=== PATIENT | male | born 1970 | race Caucasian/White ===

== ENCOUNTER 2022-06-22 08:17 | Inpatient (IN) | payer OTHER ==
[~2022-06-22] VITALS: Ht 190.5 cm; Wt 136.1 kg
--- NOTE | 2022-06-22 08:26 | NUR ---
[id number] C/O ABDOMINAL PAIN [id number], +VOMITING/NAUSEA, +ILEOSTOMY HX OF CROHN'S DISEASE, TO ER BED 4, HOOKED TO MONITOR, CHANEGD TO HOSP GOWN, WARM BLANKET PROVIDED. AWAITING MD HARRIS
--- NOTE | 2022-06-22 08:29 | NUR ---
DR. ZALDIVAR AT BEDSIDE.
[2022-06-22] MEDS ORDERED: HYDROMORPHONE INJ 2 MG/ML DISP.SYRIN IV ONE ×2 (08:30→10:30)
[2022-06-22] MEDS ORDERED: IV NS 0.9% 1,000 ML BAG IV ONE ×2 (08:30→12:30)
[2022-06-22] MEDS ORDERED: ONDANSETRON HCL/PF 4 MG/2 ML VIAL IVP ONE (08:30)
[2022-06-22] MEDS ORDERED: HYDROMORPHONE 1 MG/1 ML DISP.SYRIN ONE ×2 (08:32→11:18)
[2022-06-22] MEDS ORDERED: ONDANSETRON HCL/PF 4 MG/2 ML VIAL ONE ×2 (08:32→13:56)
--- NOTE | 2022-06-22 08:43 | NUR ---
TAKEN TO CT VIA KAREN
[2022-06-22 08:47] LABS: BASOPHILS % (AUTO) 0.2 % (0.0-2.0); HEMATOCRIT 50 % (39-51); HEMOGLOBIN 16.1 g/dL (13.5-17.5); LYMPHOCYTES % (AUTO) 6.2 % (20.0-44.0); MEAN CORPUSCULAR HGB CONC 32 g/dl (31.0-36.0); MEAN CORPUSCULAR VOLUME 86 fL (80-96); MONOCYTES # (AUTO) 1.3 K/uL (0.1-1.30); MONOCYTES % (AUTO) 8.4 % (2.0-12.0); NEUTROPHILS # (AUTO) 13.3 K/uL (1.8-8.9); NEUTROPHILS % (AUTO) 85.2 % (43.0-81.0); PLATELET COUNT (AUTO) 442 K/uL (150-450); WHITE BLOOD COUNT (AUTO) 15.5 K/uL (4.3-11.0)
[2022-06-22 09:03] LABS: ALBUMIN 3.9 g/dL (3.4-5.0); BILIRUBIN,DIRECT 0.2 mg/dL (0.0-0.2); BILIRUBIN,TOTAL 1.6 mg/dL (0.2-1.0); CALCIUM, SERUM 10.5 mg/dL (8.5-10.1); POTASSIUM 4.2 mmol/L (3.5-5.1); TOTAL PROTEIN, SERUM 9.3 g/dL (6.4-8.2)
--- NOTE | 2022-06-22 09:31 | NUR ---
COVID SWAB COLLECTED AND SENT TO LAB
--- NOTE | 2022-06-22 09:58 | NUR ---
[facility] CALLED [facility] PAGED.
--- NOTE | 2022-06-22 10:05 | NUR ---
CALLED SURGERY DR. KONG SPEAKING WITH DR. ZALDIVAR
[2022-06-22] MEDS ORDERED: USTE90DI SQ (10:17)
[2022-06-22] MEDS ORDERED: IV NS 0.9% 1,000 ML IV SCH (10:30)
[2022-06-22] MEDS ORDERED: ACETAMINOPHEN 325 MG TABLET PO PRN (10:30)
--- NOTE | 2022-06-22 10:53 | NUR ---
LAB CALLED [facility] 5.6 DR. ZALDIVAR NOTIFIED.
[2022-06-22] MEDS ORDERED: CEFEPIME 2 GM in IV D5W 100 ML IV SCH (11:00)
[2022-06-22] MEDS ORDERED: CEFEPIME 1 GM in IV D5W 50 ML IV ONE (11:30)
[2022-06-22 11:39] LABS: BILIRUBIN,URINE SMALL (NEGATIVE); COLOR,URINE DARK YELLOW (YELLOW); LEUKOCYTE ESTERASE ,URINE NEGATIVE (NEGATIVE); NITRITE, URINE NEGATIVE (NEGATIVE); PROTEIN,URINE 30 mg/dl (NEGATIVE); UGLUCOSE NEGATIVE (NEGATIVE); UROBILINOGEN,URINE 0.2 EU/dL (0.2)
[2022-06-22 11:58] LABS: BACTERIA,URINE None seen /HPF (None Seen); RBC,URINE 0-2 /HPF (0-2); SQUAMOUS EPITHELIAL CELL,UR Few /HPF (None Seen); WBC,URINE 0-2 /HPF (0-3)
[2022-06-22] MEDS ORDERED: IV NS 0.9% 500 ML BAG IV ONE (12:30)
--- NOTE | 2022-06-22 12:40 | NUR ---
REQUESTED FOR [facility] BED. AWAITING RESPONSE.
[2022-06-22] MEDS: ONDANSETRON HCL/PF 4 MG/2 ML VIAL IVP PRN ×2 (13:59→21:16)
--- NOTE | 2022-06-22 15:37 | NUR ---
GOT BED 328-1
--- NOTE | 2022-06-22 15:47 | NUR ---
REPORT GIVEN TO LORE DOTY
--- NOTE | 2022-06-22 16:10 | NUR ---
TRANSFERRED TO BED 328 IN STABLE CONDITION
--- NOTE | 2022-06-22 16:20 | NUR ---
ADMISSION NOTE Received patient from ER via gurney. Patient is A/O x 4, able to make needs known. IV access on WHITNEY #18, intact and patent. NS started, infusing at 100 ml/hr. On room air, breathing evenly and unlabored. No SOB or s/s of distress noted. Patient oriented to room and how to use the call light. Skin assessment done, Ileostomy noted on RLQ of the abdomen. Photos taken of healed abdominal incision, skin tear on Right big to, and callus on right knee; placed in chart. VS taken as follows: BP 120/83, HR 80, RR 18, Temp 98, SPO2 97%. Patient complains of abdominal pain /10. Lungs are clear to auscultation. Generalized tenderness on abdomen noted. Safety precautions in place: bed in low, locked position siderails up x 2; call light within reach. Will continue to monitor.
[2022-06-22] MEDS: IV NS 0.9% 1,000 ML IV SCH (16:29)
--- NOTE | 2022-06-22 19:35 | NUR ---
MS RN OPENING NOTE RECEIVED PATIENT RESTING IN BED; AWAKE, ALERT AND ORIENTED X4. BREATHING EVEN AND NONLABORED. ON ROOM AIR; TOLERATING WELL. NO SOB NOTED. DENIES ANY PAIN OR DISCOMFORT OF THIS TIME. IV ACCESS ON RIGHT UPPER ARM G#18; PATENT AND INTACT INFUSING WITH NS REGULATED @ 100 ML/HR; FLUSHES WELL. ABLE TO MAKE NEEDS KNOWN. WITH RLQ ILEOSTOMY NOTED DRAINING WITH LIQUID STOOL. SAFETY PRECAUTIONS IMPLEMENTED: HEAD OF BED ELEVATED; CALL LIGHT AND TABLE WITHIN REACH, SIDE RAILS UP X2, BED IN LOWEST LOCKED POSITION. WILL CONTINUE TO MONITOR
--- NOTE | 2022-06-22 19:49 | NUR ---
MS RN CLOSING NOTE Patient in bed, awake. A/O x 4, able to make needs known. Stable on room air, breathing evenly and unlabored. No SOB or s/s of distress noted. IV access on WHITNEY #18 infusing Ns at 100 ml/hr. All needs attended to. RLQ ileostomy noted, drained 350 cc liquid stool. Safety precautions maintained: bed in low, locked position siderails up x 2; call light within reach. Will endorse to crossing watchman nurse for VIKTORIA.
[2022-06-22 20:00] VITALS: BP 135/78
[2022-06-22] MEDS: HEPARIN SODIUM, PORCINE 5000 UNITS/1 ML VIAL SQ SCH (21:00)
--- NOTE | 2022-06-22 21:00 | NUR ---
MS RN NOTE PATIENT REFUSED TO RECEIVE HEPARIN 5000 UNITS SQ.
[2022-06-22] MEDS: CEFEPIME 2 GM in IV D5W 100 ML IV SCH (23:19)
[2022-06-23] MEDS: MORPHINE SULFATE INJ 2 MG/ML DISP.SYRIN IV PRN ×3 (01:19→22:26)
--- NOTE | 2022-06-23 01:19 | NUR ---
MS RN NOTE PATIENT COMPLAINED OF ABDOMINAL PAIN 07/02; PRN MORPHINE 2MG GIVEN VIA IV ORDERED. WARM BLANKET PROVIDED PER PATIENT'S REQUEST. WILL CONTINUE TO MONITOR.
[2022-06-23] MEDS: IV NS 0.9% 1,000 ML IV SCH (01:20)
[2022-06-23 06:38] LABS: BASOPHILS % (AUTO) 0.1 % (0.0-2.0); EOSINOPHILS % (AUTO) 0.9 % (0.0-6.0); HEMATOCRIT 40 % (39-51); LYMPHOCYTES # (AUTO) 0.9 K/uL (0.8-4.8); LYMPHOCYTES % (AUTO) 14.1 % (20.0-44.0); MEAN CORPUSCULAR HGB CONC 32 g/dl (31.0-36.0); MEAN CORPUSCULAR VOLUME 86 fL (80-96); MONOCYTES # (AUTO) 0.8 K/uL (0.1-1.30); MONOCYTES % (AUTO) 12.6 % (2.0-12.0); NEUTROPHILS # (AUTO) 4.6 K/uL (1.8-8.9); NEUTROPHILS % (AUTO) 72.3 % (43.0-81.0); PLATELET COUNT (AUTO) 288 K/uL (150-450); RED BLOOD CELL COUNT(AUTO) 4.65 MIL/uL (4.5-6.0); WHITE BLOOD COUNT (AUTO) 6.3 K/uL (4.3-11.0)
--- NOTE | 2022-06-23 06:55 | NUR ---
MS RN CLOSING NOTE PATIENT IN BED; AWAKE, A/O X4. BREATHING EVENLY AND NONLABORED. STABLE ON ROOM AIR. NO SOB NOTED. IV ACCESS ON WHITNEY G#18; PATENT AND INTACT INFUSING WITH NS REGULATED @ 100 ML/HR; FLUSHES WELL. NO INFILTRATION NOTED. WITH RLQ ILEOSTOMY NOTED DRAINING WITH LIQUID STOOL. ALL NEEDS ATTENDED TO. SAFETY PRECAUTIONS IN PLACE: HOB ELEVATED, CALL LIGHT AND TABLE WITHIN EASY REACH, SIDE RAILS UP X2, BED IN LOWEST LOCKED POSITION. ENDORSED TO MORNING SHIFT FOR VIKTORIA.
--- NOTE | 2022-06-23 07:08 | NUR ---
MS RN OPENING NOTE RECEIVED PATIENT SLEEPING IN BED, ON ROOM AIR, NO S/S OF RESPIRATORY DISTRESS. A/O x4, NO S/S OR C/O OF CARDIAC DISTRESS. IV ACCESS WHITNEY #18G WITH NS RUNNING @100 ML/HR. PATIENT IS AMBULATORY AND CONTINENT, HAS BRP. SKIN ISSUES: R KNEE SCAB, R BIG TOE SKIN TEAR, RLQ OSTOMY PRESENT, BAG IN PLACE NO LEAK NOTED, DRAINING WELL. SAFETY MEASURES IN PLACE: BED LOCKED AND IN LOWEST POSITION, SIDE RAILS UP x2, HOB ELEVATED, AND CALL LIGHT WITHIN REACH.
[2022-06-23 07:26] LABS: BILIRUBIN,TOTAL 0.7 mg/dL (0.2-1.0); CALCIUM, SERUM 8.8 mg/dL (8.5-10.1); CREATININE 1.4 mg/dL (0.6-1.3); MAGNESIUM 2.3 mg/dL (1.8-2.4); PHOSPHORUS 3.1 mg/dL (2.5-4.9); POTASSIUM 4.2 mmol/L (3.5-5.1); TOTAL PROTEIN, SERUM 7.1 g/dL (6.4-8.2)
[2022-06-23] MEDS: HEPARIN SODIUM, PORCINE 5000 UNITS/1 ML VIAL SQ SCH ×2 (09:21→20:31)
[2022-06-23] MEDS: CEFEPIME 2 GM in IV D5W 100 ML IV SCH ×2 (10:40→22:11)
--- NOTE | 2022-06-23 11:13 | NUR ---
RN NOTES PATIENT LEFT UNIT FOR X-RAY OF SMALL BOWEL FOLLOW THROUGH. ACCOMPANIED BY 1 X-RAY TECH AND BROUGHT DOWN VIA WHEELCHAIR.
[2022-06-23] MEDS ORDERED: BARIUM SULFATE SUSP 450 ML BOTTLE PO ONE (11:20)
[2022-06-23] MEDS ORDERED: DIATR MEGLU/DIATRIZOATE SODIUM 120 ML BOTTLE (GASTROGRAPHIN) ONE (11:20)
[2022-06-23] MEDS ORDERED: BARIUM SULFATE 98% 135 ML SUSP.RECON PO ONE (11:22)
--- NOTE | 2022-06-23 12:52 | NUR ---
PATIENT RETURNED FROM RADIOLOGY, NO S/S OF DISTRESS, DISCOMFORT, OR PAIN. WILL CONTINUE TO MONITOR.
--- NOTE | 2022-06-23 15:10 | NUR ---
RN NOTES PATIENT COMPLAINED OF PAIN 07/02, PRN MORPHINE GIVEN @1507. WILL CONTINUE TO MONITOR.
[2022-06-23] MEDS: IV NS 0.9% 1,000 ML IV PRN (18:36)
--- NOTE | 2022-06-23 18:44 | NUR ---
MS RN CLOSING NOTE PATIENT RESTING IN BED ON PHONE, ON ROOM AIR, NO S/S OF RESPIRATORY DISTRESS. A/O x4, NO S/S OR C/O OF CARDIAC DISTRESS. IV ACCESS WHITNEY #18G WITH NS RUNNING @100 ML/HR. PATIENT IS AMBULATORY WITH ASSISTANCE AND CONTINENT, HAS BRP. SKIN ISSUES: R KNEE SCAB, R BIG TOE SKIN TEAR, RLQ OSTOMY PRESENT, BAG IN PLACE NO LEAK NOTED, DRAINING WELL. SAFETY MEASURES MAINTAINED: BED LOCKED AND IN LOWEST POSITION, SIDE RAILS UP x2, HOB ELEVATED, AND CALL LIGHT WITHIN REACH.
--- NOTE | 2022-06-23 20:20 | NUR ---
MS RN OPENING NOTE RECEIVED PATIENT IN BED AOX4 ON ROOM AIR STEVO WELL.NO SOB/DISTRESS NOTED. IV ACCESS WHITNEY #18G WITH NS RUNNING @100 ML/HR.PATENT AND INTACT. RLQ OSTOMY PRESENT, BAG IN PLACE NO LEAK NOTED, DRAINING WELL. SAFETY MEASURES IN PLACE: BED LOCKED AND IN LOWEST POSITION, SIDE RAILS UP x2, HOB ELEVATED, AND CALL LIGHT WITHIN REACH.WILL CONTINUE TO MONITOR.
[2022-06-24] MEDS: IV NS 0.9% 1,000 ML IV PRN (03:14)
[2022-06-24 04:40] VITALS: BP 110/77
--- NOTE | 2022-06-24 06:13 | NUR ---
MS RN CLOSING NOTE PATIENT IN BED SLEEPING,ON ROOM AIR, NO S/S OF RESPIRATORY DISTRESS. A/O x4, NO S/S OR C/O OF CARDIAC DISTRESS. IV ACCESS WHITNEY #18G WITH NS RUNNING @100 ML/HR. PATIENT IS AMBULATORY WITH ASSISTANCE AND CONTINENT,DUE MEDS GIVEN ORDER.ALL NEEDS ATTENDED.SAFETY MEASURES MAINTAINED: BED LOCKED AND IN LOWEST POSITION, SIDE RAILS UP x2, HOB ELEVATED, AND CALL LIGHT WITHIN REACH.WILL ENDORSED TO NEXT SHIFT.
[2022-06-24 06:32] LABS: BASOPHILS % (AUTO) 0.3 % (0.0-2.0); EOSINOPHILS % (AUTO) 3.2 % (0.0-6.0); HEMATOCRIT 37 % (39-51); HEMOGLOBIN 12.1 g/dL (13.5-17.5); LYMPHOCYTES % (AUTO) 27.7 % (20.0-44.0); MEAN CORPUSCULAR HGB CONC 33 g/dl (31.0-36.0); MEAN CORPUSCULAR VOLUME 86 fL (80-96); MONOCYTES # (AUTO) 0.6 K/uL (0.1-1.30); MONOCYTES % (AUTO) 17.3 % (2.0-12.0); NEUTROPHILS # (AUTO) 1.9 K/uL (1.8-8.9); NEUTROPHILS % (AUTO) 51.5 % (43.0-81.0); PLATELET COUNT (AUTO) 241 K/uL (150-450); RED BLOOD CELL COUNT(AUTO) 4.34 MIL/uL (4.5-6.0); WHITE BLOOD COUNT (AUTO) 3.7 K/uL (4.3-11.0)
[2022-06-24 07:01] LABS: CALCIUM, SERUM 8.9 mg/dL (8.5-10.1); CREATININE 1.4 mg/dL (0.6-1.3); MAGNESIUM 2.4 mg/dL (1.8-2.4); PHOSPHORUS 2.8 mg/dL (2.5-4.9); POTASSIUM 3.8 mmol/L (3.5-5.1)
[2022-06-24 08:00] VITALS: BP 110/62
[2022-06-24] MEDS: HEPARIN SODIUM, PORCINE 5000 UNITS/1 ML VIAL SQ SCH ×2 (08:27→21:49)
[2022-06-24] MEDS: METOCLOPRAMIDE HCL 10 MG/2 ML VIAL IV SCH ×3 (09:30→18:00)
[2022-06-24 09:50] LABS: BASOPHILS % (MANUAL) 0 % (0.0-2.0); EOSINOPHILS % (MANUAL) 5 % (0-4); LYMPHOCYTES % (MANUAL) 29 % (16-48); MONOCYTES % (MANUAL) 13 % (0-11.0); NEUTROPHILS % (MANUAL) 53 (42-76)
[2022-06-24] MEDS: CEFEPIME 2 GM in IV D5W 100 ML IV SCH ×2 (11:35→23:14)
--- NOTE | 2022-06-24 11:36 | NUR ---
RN NOTES PATIENT REFUSED REGLAN SAYING THAT HE DOES NOT FEEL NAUSEOUS AT THE MOMENT AND HAS NOT EATEN ANYTHING YET. WILL CONTINUE TO MONITOR.
--- NOTE | 2022-06-24 18:09 | NUR ---
RN NOTES ASKED PATIENT IF HE WANTED TO TAKE THE THIRD DOSE OF REGLAN BUT PATIENT REFUSED, SAYING THAT THE MEDICATION MADE HIM FEEL JITTERY AND THAT HE WAS NOT FEELING NAUSEOUS.
--- NOTE | 2022-06-24 18:48 | NUR ---
MS RN CLOSING NOTE PATIENT RESTING IN BED, STABLE ON ROOM AIR, NO S/S OF RESPIRATORY DISTRESS. A/O x4, NO S/S OR C/O OF CARDIAC DISTRESS. IV ACCESS WHITNEY #18G WITH NS RUNNING @100 ML/HR. PATIENT IS AMBULATORY AND CONTINENT, HAS BRP. SKIN ISSUES: R KNEE SCAB, R BIG TOE SKIN TEAR, RLQ OSTOMY PRESENT, BAG IN PLACE NO LEAK NOTED, DRAINING WELL. SAFETY MEASURES MAINTAINED: BED LOCKED AND IN LOWEST POSITION, SIDE RAILS UP x2, HOB ELEVATED, AND CALL LIGHT WITHIN REACH. WILL ENDORSE TO NEXT SHIFT ANY VIKTORIA.
--- NOTE | 2022-06-24 19:55 | NUR ---
RN OPENING NOTE PATIENT ASLEEP IN BED. A/OX4. NO S/S OF DISTRESS, BREATHING W/O DIFFICULTY ON ROOM AIR. WHITNEY #18 INTACT AND PATENT W/ NS 100ML/HR. SAFETY MEASURES IN PLACE: BED LOCKED AND AT LOWEST POSITION, RAILS UP X2, CALL FLANNERY WITHIN REACH. WILL CONTINUE TO MONITOR PATIENT.
[2022-06-24 20:00] VITALS: BP 111/63
[2022-06-25] MEDS: METOCLOPRAMIDE HCL 10 MG/2 ML VIAL IV SCH ×3 (06:00→12:00)
[2022-06-25 06:39] LABS: BASOPHILS % (AUTO) 0.3 % (0.0-2.0); EOSINOPHILS % (AUTO) 2.9 % (0.0-6.0); HEMATOCRIT 38 % (39-51); HEMOGLOBIN 12.4 g/dL (13.5-17.5); LYMPHOCYTES # (AUTO) 1.3 K/uL (0.8-4.8); LYMPHOCYTES % (AUTO) 30.8 % (20.0-44.0); MEAN CORPUSCULAR HGB CONC 33 g/dl (31.0-36.0); MEAN CORPUSCULAR VOLUME 85 fL (80-96); MONOCYTES # (AUTO) 0.6 K/uL (0.1-1.30); MONOCYTES % (AUTO) 13.8 % (2.0-12.0); NEUTROPHILS # (AUTO) 2.2 K/uL (1.8-8.9); NEUTROPHILS % (AUTO) 52.2 % (43.0-81.0); PLATELET COUNT (AUTO) 265 K/uL (150-450); RED BLOOD CELL COUNT(AUTO) 4.47 MIL/uL (4.5-6.0); WHITE BLOOD COUNT (AUTO) 4.2 K/uL (4.3-11.0)
--- NOTE | 2022-06-25 06:52 | NUR ---
RN CLOSING NOTE PATIENT AWAKE IN BED. A/OX4. NO S/S OF DISTRESS, BREATHING W/O DIFFICULTY ON ROOM AIR. WHITNEY #18 SL INTACT AND PATENT. SAFETY MEASURES IN PLACE: BED LOCKED AND AT LOWEST POSITION, RAILS UP X2, CALL FLANNERY WITHIN REACH. WILL ENDORSE TO THE NEXT SHIFT FOR VIKTORIA.
[2022-06-25 07:23] LABS: CALCIUM, SERUM 9.3 mg/dL (8.5-10.1); CREATININE 1.5 mg/dL (0.6-1.3); MAGNESIUM 2.1 mg/dL (1.8-2.4); PHOSPHORUS 4.2 mg/dL (2.5-4.9); POTASSIUM 3.4 mmol/L (3.5-5.1)
[2022-06-25 08:00] VITALS: BP 123/61
[2022-06-25] MEDS: HEPARIN SODIUM, PORCINE 5000 UNITS/1 ML VIAL SQ SCH (08:07)
--- NOTE | 2022-06-25 10:00 | NUR ---
RN NOTE PMD ROUTINE ROUNDS DONE, WITH T.O. TO CHANGE DIET TO MECH SOFT.
[2022-06-25] MEDS ORDERED: POTASSIUM CL. PREMIX PERIPHER. 50 ML IV SCH (10:30)
[2022-06-25] MEDS ORDERED: methylPREDNISolone SOD SUCC 125 MG/2ML VIAL IV ONE (11:30)
[2022-06-25] MEDS ORDERED: PRED20TA PO (11:47)
[2022-06-25] MEDS: CEFEPIME 2 GM in IV D5W 100 ML IV SCH (12:02)
--- NOTE | 2022-06-25 14:58 | NUR ---
RN NOTE PT D/C TO HOME. IN GOOD CONDITION. V/S STABLE. IN ROOM AIR. NOT IN DISTRESS. IV ACCESS ON L HAND D/C. INSTRUCTIONS GIVEN AND EXPLAINED TO PT AND VERBALIZED UNDERSTANDING.
== END 2022-06-25 15:00 | disposition home or self-care (01) | DRG 871 ==
LOC: ER 08:22 → TRANSITION 11:31 → MED 15:39
PROVIDERS: ADMIT Internal Medicine; ATTEND Registered Nurse
DX: A41.9 Sepsis, unspecified organism (principal); N17.0 Acute kidney failure with tubular necrosis; K56.609 Unspecified intestinal obstruction, unspecified as to partial versus complete obstruction; R17 Unspecified jaundice; K50.90 Crohn's disease, unspecified, without complications; E87.2 Acidosis; N20.0 Calculus of kidney; N26.1 Atrophy of kidney (terminal); Z90.49 Acquired absence of other specified parts of digestive tract; Z68.30 Body mass index [BMI] 30.0-30.9, adult; D17.79 Benign lipomatous neoplasm of other sites; K40.20 Bilateral inguinal hernia, without obstruction or gangrene, not specified as recurrent; Z93.2 Ileostomy status
CPT/HCPCS: 36415; 74250-TC; 80048-TC; 80053-TC; 80076-TC; 81001; 83605-TC; 83690-TC; 83735-TC; 84100-TC; 85025-TC; 87040-TC; 87081-TC; C9803; G0378; J0692; J1170; J1644; J2270; J2405; J2765; J2930; J3480; J7030; J7040; J7050; J7060; Q9963

== ENCOUNTER 2022-10-02 08:10 | Inpatient (IN) | payer OTHER ==
[~2022-10-02] VITALS: Ht 190.5 cm; Wt 141.5 kg
[~2022-10-02 08:10] MED LIST: PRED20TA PO; USTE90DI SQ
[2022-10-02] MEDS ORDERED: IV NS 0.9% 1,000 ML BAG IV ONE (08:30)
[2022-10-02 09:18] LABS: CALCIUM, SERUM 9.9 mg/dL (8.5-10.1); CREATININE 1.2 mg/dL (0.6-1.3); POTASSIUM 4.1 mmol/L (3.5-5.1)
[2022-10-02] MEDS ORDERED: ONDANSETRON HCL/PF 4 MG/2 ML VIAL ONE ×2 (09:18→13:09)
[2022-10-02 09:22] LABS: ALBUMIN 3.6 g/dL (3.4-5.0); BILIRUBIN,DIRECT 0.2 mg/dL (0.0-0.2); TOTAL PROTEIN, SERUM 7.9 g/dL (6.4-8.2)
[2022-10-02] MEDS ORDERED: ONDANSETRON HCL/PF - ER 4 MG/2 ML VIAL IV ONE (09:30)
[2022-10-02] MEDS ORDERED: IOHEXOL-350 100 ML VIAL IV ONE (09:47)
[2022-10-02] MEDS ORDERED: CT SWABBABLE VALVE TRANS SET 1 EA INFUS.SET MC ONE (09:47)
[2022-10-02] MEDS ORDERED: IV NS 0.9% 250 ML IV ONE (09:47)
[2022-10-02 09:51] LABS: BASOPHILS % (AUTO) 0.1 % (0.0-2.0); EOSINOPHILS % (AUTO) 0.3 % (0.0-6.0); HEMATOCRIT 48 % (39-51); HEMOGLOBIN 15.8 g/dL (13.5-17.5); LYMPHOCYTES # (AUTO) 0.9 K/uL (0.8-4.8); LYMPHOCYTES % (AUTO) 8.2 % (20.0-44.0); MEAN CORPUSCULAR HGB CONC 33 g/dl (31.0-36.0); MEAN CORPUSCULAR VOLUME 89 fL (80-96); MONOCYTES % (AUTO) 8.6 % (2.0-12.0); NEUTROPHILS # (AUTO) 9.5 K/uL (1.8-8.9); NEUTROPHILS % (AUTO) 82.8 % (43.0-81.0); PLATELET COUNT (AUTO) 330 K/uL (150-450); RED BLOOD CELL COUNT(AUTO) 5.35 MIL/uL (4.5-6.0); WHITE BLOOD COUNT (AUTO) 11.5 K/uL (4.3-11.0)
--- NOTE | 2022-10-02 10:40 | NUR ---
MOVE SHEET SUBMITTED.
--- NOTE | 2022-10-02 10:41 | NUR ---
DR. KENDRICK ON THE PHONE WITH DR. MCMAHAN.
[2022-10-02] MEDS ORDERED: OXYC-592 PO (11:07)
[2022-10-02] MEDS ORDERED: Z GUARD REMEDY 4 OZ OINT TP PRN (11:30)
[2022-10-02] MEDS ORDERED: ONDANSETRON HCL/PF 4 MG/2 ML VIAL IVP PRN (11:30)
[2022-10-02] MEDS ORDERED: PANTOPRAZOLE 40 MG VIAL ONE (11:40)
[2022-10-02] MEDS: PANTOPRAZOLE 40 MG VIAL IV SCH (11:41)
--- NOTE | 2022-10-02 13:15 | NUR ---
Pt actively vomiting- Medicated as ordered. Updated w/plan of care
[2022-10-02] MEDS ORDERED: HYDROMORPHONE 1 MG/1 ML DISP.SYRIN ONE (13:20)
[2022-10-02] MEDS: HYDROMORPHONE INJ 2 MG/ML DISP.SYRIN IV PRN ×2 (13:25→19:05)
--- NOTE | 2022-10-02 13:47 | NUR ---
BED 324-2.
--- NOTE | 2022-10-02 14:42 | NUR ---
REPORT GIVEN TO SOREN BRANTLEY FOR VIKTORIA
--- NOTE | 2022-10-02 15:00 | NUR ---
SURGICAL DENTAL ASSISTANT NOTES RECEIVED PATIENT VIA GURNEY AT 1457 PM FROM ER VIA [facility]. PATIENT IS ALERT AND ORIENTED TIMES 4.VITAL SIGNS IN NORMAL RANGES. NO PAIN NOTED. NO SOB NOTED. NO DISTRESS NOTED. IV ACCESS ON RAC # 20 INTACT RUNNING LR AT 100 ML/HR. RIGHT LOWER ABDOMINAL DRESSING FOR PREVIOUS ILEOSTOMY SURGERY NOTED.PICTURE TAKEN IN THE CHART. ILIOSTOMY BAG INTACT. GIRLFRIEND AT THE BED SIDE. ALL THE BELONGING ACCOUNTED AND SIGNED FOR.BED LOCKED IN THE LOWEST POSITION. CALL LIGHT AND TABLE IN EASY REACH. SIDE RAILS UP MEG 2. WILL CONTINUE TO MONITOR CLOSELY.
[2022-10-02] MEDS: IV LR 1000 ML 1,000 ML IV PRN (15:07)
[2022-10-02 16:00] VITALS: BP 123/73
--- NOTE | 2022-10-02 19:30 | NUR ---
RN CLOSING NOTES PATIENT IS ALERT AND ORIENTED TIMES 4.VITAL SIGNS IN NORMAL RANGES. NO PAIN NOTED. NO SOB NOTED. NO DISTRESS NOTED. IV ACCESS ON RAC # 20 INTACT RUNNING LR AT 100 ML/HR. RIGHT LOWER ABDOMINAL DRESSING FOR PREVIOUS ILEOSTOMY SURGERY NOTED.PICTURE TAKEN IN THE CHART. ILIOSTOMY BAG INTACT. ALL DUE MEDS GIVEN ORDERED.BED LOCKED IN THE LOWEST POSITION. CALL LIGHT AND TABLE IN EASY REACH. SIDE RAILS UP MEG 2. WILL ENDORSE FOR VIKTORIA..
--- NOTE | 2022-10-02 19:42 | NUR ---
RN OPENING NOTES; RECEIVED PT IN BED AAOX4 ABLE TO MAKE NEEDS KNOWN,ON RM AIR STEVO WELL,NO SIGN SOB/DISTRESS NOTED,NO COMPLAIN OF PAIN/DISCOMFORT AT THIS TIME,IV ACCESSS ON RAC 20G SL,SAFETY MEASURE IN PLACE,CALL LIGHT WITHIN REACH,WILL CONTINUE TO MONITOR.
[2022-10-02 20:00] VITALS: BP 120/76
[2022-10-03] MEDS: IV LR 1000 ML 1,000 ML IV PRN (03:14)
[2022-10-03 03:32] LABS: BAND % (MANUAL) 1 % (0.0-5.0); LYMPHOCYTES % (MANUAL) 11 % (16-48); MONOCYTES % (MANUAL) 10 % (0-11.0); NEUTROPHILS % (MANUAL) 78 (42-76)
[2022-10-03] MEDS: HYDROMORPHONE INJ 2 MG/ML DISP.SYRIN IV PRN (04:57)
--- NOTE | 2022-10-03 06:15 | NUR ---
RN CLOSING NOTES; PT IN BED AAOX4 ABLE TO MAKE NEEDS KNOWN,ON RM AIR STEVO WELL,NO SIGN SOB/DISTRESS NOTED,NO COMPLAIN OF PAIN/DISCOMFORT DURING SHIFT,DUE MEDS GIVEN ORDER,ALL NEEDS ATTENDED,PT WAS NPO SINCE MIDNIGHT,IV ACCESSS ON RAC 20G SL,SAFETY MEASURE IN PLACE,CALL LIGHT WITHIN REACH,WILL ENDORSED TO NEXT SHIFT.
[2022-10-03 06:39] LABS: CALCIUM, SERUM 8.9 mg/dL (8.5-10.1); CREATININE 1.1 mg/dL (0.6-1.3); MAGNESIUM 2.4 mg/dL (1.8-2.4); PHOSPHORUS 3.2 mg/dL (2.5-4.9); POTASSIUM 4.1 mmol/L (3.5-5.1)
--- NOTE | 2022-10-03 07:20 | NUR ---
MS RN OPENING NOTE RECEIVED PT AWAKE IN BED. PATIENT A/O X 4. PT STABLE ON ROOM AIR WITH EQUAL AND UNLABORED BREATHING WITH NO SIGNS OF RESPIRATORY DISTRESS. COMPLAINT OF SOME ABDOMINAL DISCOMFORT BUT REFUSED AND PAIN MEDICATION AT THIS TIME. PATIENT WITH IV ACCESS ON THE RIGHT AC G20 WITH ONGOING IVF OF NORMAL SALINE INFUSING WELL. WITH COLOSTOMY BAG, INTACT AND PATIENT ABLE TO EMPTY IT HIMSELF. WITH DRESSING ON THE RIGHT LOWER ABDOMEN WITH MEPILEX BORDERED, DRESSING DRY AND INTACT. COMFORT MEASURES PROVIDED. SAFETY PRECAUTIONS IN PLACE. BED IN LOWEST LOCKED POSITION, HOB ELEVATED, SIDE RAILS UP X3, AND CALL LIGHT AND TABLE WITHIN REACH. KEPT ON NPO FOR SMALL BOWEL FOLLOW THROUGH ORDERED.
--- NOTE | 2022-10-03 07:44 | NUR ---
WOUND CARE CONSULT: PT PRESENTS WITH ILEOSTOMY AND HEALING SURGICAL WOUND DISTALLY, PRESENT ON ADMISSION. NO DRAINAGE NOTED. PT STATES THAT HE AND HIS GIRLFRIEND ARE DOING THE WOUND CARE DAILY WITH CALCIUM ALGINATE AND MEPILEX BORDER DRESSINGS. PT STATES HAS HIS OWN SUPPLIES FOR WOUND CARE AND IS GOING FOR PROCEDURE TODAY WITH DR MCMAHAN. DISCUSSED SKIN PROTECTION WITH NURSING STAFF. PT IS INDEPENDENT WITH BED MOBILITY AND IS CONTINENT. WILL SEE PRN.
[2022-10-03 07:53] LABS: BASOPHILS % (AUTO) 0.1 % (0.0-2.0); EOSINOPHILS % (AUTO) 1.3 % (0.0-6.0); HEMATOCRIT 41 % (39-51); HEMOGLOBIN 13.8 g/dL (13.5-17.5); LYMPHOCYTES # (AUTO) 0.8 K/uL (0.8-4.8); LYMPHOCYTES % (AUTO) 18.5 % (20.0-44.0); MEAN CORPUSCULAR HGB CONC 34 g/dl (31.0-36.0); MEAN CORPUSCULAR VOLUME 89 fL (80-96); MONOCYTES # (AUTO) 0.9 K/uL (0.1-1.30); MONOCYTES % (AUTO) 20.4 % (2.0-12.0); NEUTROPHILS # (AUTO) 2.7 K/uL (1.8-8.9); NEUTROPHILS % (AUTO) 59.7 % (43.0-81.0); PLATELET COUNT (AUTO) 247 K/uL (150-450); WHITE BLOOD COUNT (AUTO) 4.6 K/uL (4.3-11.0)
[2022-10-03] MEDS ORDERED: DIATR MEGLU/DIATRIZOATE SODIUM 120 ML BOTTLE (GASTROGRAPHIN) ONE ×2 (09:18)
[2022-10-03] MEDS: PANTOPRAZOLE 40 MG VIAL IV SCH (10:27)
--- NOTE | 2022-10-03 12:30 | NUR ---
MS RN NOTE SMALL BOWEL FOLLOW THROUGH DONE AND RELAYED TO DR. MCMAHAN AND HOSPITALIST JEANNIE WITH ORDER TO START PATIENT ON FULL LIQUID DIET. HEALTH TEAHCIGN DONE AND VERBALIZED UNDERSTANDIGN . IN STABLE CONDITION. WILL CONTINUE TO MONITOR PATIENT. NO COMPLAIN OF PAIN OR DISCOMFORT.
--- NOTE | 2022-10-03 18:50 | NUR ---
MS RN CLOSING NOTE PATIENT A/O X 4. PT STABLE ON ROOM AIR WITH EQUAL AND UNLABORED BREATHING WITH NO SIGNS OF RESPIRATORY DISTRESS. WITH SOME ABDOMINAL DISCOMFORT BUT REFUSED AND PAIN MEDICATION AT THIS TIME. PATIENT WITH IV ACCESS ON THE RIGHT AC G20 ON SALINE LOCK, PATENT AND INTACT. WITH COLOSTOMY BAG, INTACT AND PATIENT ABLE TO EMPTY IT HIMSELF. WITH DRESSING ON THE RIGHT LOWER ABDOMEN WITH MEPILEX BORDERED, DRESSING DRY AND INTACT. COMFORT MEASURES PROVIDED. SAFETY PRECAUTIONS IN PLACE. BED IN LOWEST LOCKED POSITION, HOB ELEVATED, SIDE RAILS UP X3, AND CALL LIGHT AND TABLE WITHIN REACH. ENDORSED TO NEXT SHIFT FOR CONTINUITY OF CARE.
--- NOTE | 2022-10-03 19:30 | NUR ---
MS RN OPENING NOTE RECEIVED PATIENT LYING AWAKE IN BED. A/O X 4. PT STABLE ON ROOM AIR WITH EQUAL AND UNLABORED BREATHING WITH NO SIGNS OF RESPIRATORY DISTRESS. IV ACCESS ON THE RIGHT AC G20 ON SALINE LOCK, PATENT AND INTACT. WITH COLOSTOMY BAG, INTACT AND PATIENT ABLE TO EMPTY IT HIMSELF. WITH DRESSING ON THE RIGHT LOWER ABDOMEN WITH MEPILEX BORDERED, DRESSING DRY AND INTACT. COMFORT MEASURES PROVIDED. SAFETY PRECAUTIONS IN PLACE. BED IN LOWEST LOCKED POSITION, HOB ELEVATED, SIDE RAILS UP X3, AND CALL LIGHT AND TABLE WITHIN REACH. WILL CONTINUE TO MONITOR.
[2022-10-03 20:02] LABS: BAND % (MANUAL) 13 % (0.0-5.0); EOSINOPHILS % (MANUAL) 1 % (0-4); LYMPHOCYTES % (MANUAL) 21 % (16-48); MONOCYTES % (MANUAL) 15 % (0-11.0); NEUTROPHILS % (MANUAL) 50 (42-76)
[2022-10-03 21:27] VITALS: BP 114/73
--- NOTE | 2022-10-04 06:51 | NUR ---
MS RN CLOSING NOTE PATIENT LYING SLEEPING IN BED. A/O X 4. PT STABLE ON ROOM AIR WITH EQUAL AND UNLABORED BREATHING WITH NO SIGNS OF RESPIRATORY DISTRESS. IV ACCESS ON THE RIGHT AC G20 ON SALINE LOCK, PATENT AND INTACT. WITH COLOSTOMY BAG, INTACT AND PATIENT ABLE TO EMPTY IT HIMSELF. WITH DRESSING ON THE RIGHT LOWER ABDOMEN WITH MEPILEX BORDERED, DRESSING DRY AND INTACT. COMFORT MEASURES PROVIDED. SAFETY PRECAUTIONS IN PLACE. BED IN LOWEST LOCKED POSITION, HOB ELEVATED, SIDE RAILS UP X3, AND CALL LIGHT AND TABLE WITHIN REACH. WILL ENDORSE TO NEXT SHIFT RN FOR VIKTORIA.
[2022-10-04 07:00] VITALS: BP 116/58
[2022-10-04 07:14] LABS: BASOPHILS % (AUTO) 0.3 % (0.0-2.0); EOSINOPHILS % (AUTO) 1.4 % (0.0-6.0); HEMATOCRIT 43 % (39-51); HEMOGLOBIN 14.5 g/dL (13.5-17.5); LYMPHOCYTES % (AUTO) 22.3 % (20.0-44.0); MEAN CORPUSCULAR HGB CONC 34 g/dl (31.0-36.0); MEAN CORPUSCULAR VOLUME 90 fL (80-96); MONOCYTES # (AUTO) 0.8 K/uL (0.1-1.30); MONOCYTES % (AUTO) 17.3 % (2.0-12.0); NEUTROPHILS # (AUTO) 2.6 K/uL (1.8-8.9); NEUTROPHILS % (AUTO) 58.7 % (43.0-81.0); PLATELET COUNT (AUTO) 262 K/uL (150-450); RED BLOOD CELL COUNT(AUTO) 4.76 MIL/uL (4.5-6.0); WHITE BLOOD COUNT (AUTO) 4.4 K/uL (4.3-11.0)
[2022-10-04] MEDS ORDERED: HYDR-3972 PO (07:27)
[2022-10-04 07:38] LABS: CALCIUM, SERUM 9.8 mg/dL (8.5-10.1); CREATININE 1.3 mg/dL (0.6-1.3); POTASSIUM 3.9 mmol/L (3.5-5.1)
[2022-10-04] MEDS: PANTOPRAZOLE 40 MG VIAL IV SCH (08:35)
[2022-10-04] MEDS ORDERED: HYDROCODONE/APAP 5/325MG TABLET PO PRN (10:00)
[2022-10-04 11:44] LABS: LYMPHOCYTES % (MANUAL) 21 % (16-48); MONOCYTES % (MANUAL) 17 % (0-11.0); NEUTROPHILS % (MANUAL) 62 (42-76)
--- NOTE | 2022-10-04 12:10 | NUR ---
SHELF STOCKER NOTE PATIENT MADE AWARE OF MD DISCHARGE ORDERS AND INSTRUCTIONS. PATIENT VERBALIZED UNDERSTANDING OF MD DISCHARGE INSTRUCTIONS AND SIGNED MD DISCHARGE INSTRUCTIONS SHEET. PATIENT VERBALIZED POSSESSION OF ALL BELONGINGS AND SIGNED BELONGINGS SHEET. IV LINE AND ID BAND REMOVED. COPIES OF ALL PAPERWORK AND EDUCATION PROVIDED TO PATIENT. PATIENT TRANSPORTED OFF OF UNIT VIA WHEELCHAIR ACCOMPANIED BY MARIELLA. PATIENT STABLE AT TIME OF DISCHARGE. Addendum: 10/04/22 at 1342 by ISAIAH DESAI RN PATIENT REFUSED WOUND PHOTOS AT TIME OF DISCHARGE
[2022-10-05] MEDS ORDERED: PANTOPRAZOLE 40 MG TABLET.DR PO SCH (07:30)
== END 2022-10-04 12:30 | disposition home or self-care (01) | DRG 387 ==
LOC: ER 08:17 → TRANSITION 11:02 → MED 14:45
PROVIDERS: ADMIT Nurse Practitioner Acute Care; ATTEND Nurse Practitioner Acute Care
DX: K50.90 Crohn's disease, unspecified, without complications (principal); Z68.39 Body mass index [BMI] 39.0-39.9, adult; E66.01 Morbid (severe) obesity due to excess calories; Z90.49 Acquired absence of other specified parts of digestive tract; Z79.899 Other long term (current) drug therapy; Z93.2 Ileostomy status; M48.061 Spinal stenosis, lumbar region without neurogenic claudication; D35.02 Benign neoplasm of left adrenal gland; N26.1 Atrophy of kidney (terminal); K40.20 Bilateral inguinal hernia, without obstruction or gangrene, not specified as recurrent; Z87.19 Personal history of other diseases of the digestive system; F12.90 Cannabis use, unspecified, uncomplicated; M25.78 Osteophyte, vertebrae
CPT/HCPCS: 36415; 74250-TC; 80048-TC; 80076-TC; 83605-TC; 83690-TC; 83735-TC; 84100-TC; 85025-TC; 85730-TC; 87081-TC; C9113; G0378; J1170; J2405; J7030; J7050; J7120; Q9963; Q9967